=== PATIENT | male | born 1960 | race Caucasian/White ===

== ENCOUNTER → 2019-01-15 | Outpatient (CLI) | payer BC | END | disposition home or self-care (01) | LOC: CPPFTMAIN 10:29 | PROVIDERS: ATTEND Internal Medicine | DX: Z53.9 Procedure and treatment not carried out, unspecified reason (principal) ==

== ENCOUNTER → 2019-09-10 | Outpatient (CLI) | payer BC ==
--- NOTE | 2019-09-10 11:53 | CTL ---
EXAMINATION TYPE: CT Low Dose Lung DATE OF EXAM ORDERED: 09/10/2019 HISTORY: 59-year-old male Personal history tobacco use/nicotine dependence.. Lung cancer screening. CT DLP: [address] CTDI: 1.76 mGy Automated exposure control for dose reduction was used. SCREENING VISIT: Baseline COMPARISON: Correlation radiograph 02/01/2019 TECHNIQUE: Low dose computed tomography scan was performed through the chest at 1 mm thick sections a nd reconstructed images in the coronal/sagittal plane at 1 mm thick sections. Additional coronal MIP reconstruction performed. CT DIAGNOSTIC QUALITY: Satisfactory FINDINGS: Heart normal size without pericardial effusion. Minimal LAD calcifications are noted. Ectatic ascending aorta 3.8 cm. Conventional vessel branching anatomy. Minimal scattered prostatic ca lcifications within the aorta. Trace bilateral gynecomastia. No thoracic lymphadenopathy by CT size criteria. Mild centrilobular emphysema. Mild diffuse bronchial wall thickening. Biapical pleural-parenchymal sc arring. 7 mm medial right upper lobe pulmonary nodule, axial image 55. 4 mm subpleural pulmonary nodule lateral right upper lobe axial image 93. 6 mm right midlung pulmonary nodule along the major fissure likely lymph node. Axial image 202. Strandy atelectasis in the inferior lingula. No consolidation or pleural effusion. Tiny hiatal hernia. Otherwise, visualized upper abdomen shows no gross abnormality by noncontrast low -dose technique. Bones: Mild degenerative disc disease throughout the thoracic spine. IMPRESSION: 1. LungRADS Category 3 (probably benign, 1-2% chance of malignancy). 7 mm medial right upper lobe pul monary nodule. A couple additional pulmonary nodules measuring up to 6 cm. 2. COPD with mild emphysema. RECOMMENDATION: 1. Six-month follow-up low-dose CT chest to reassess the pulmonary nodules. 2. Smoking cessation. FOLLOW UP CT CHEST RECOMMENDATION: [address] LUNG RAD: Lung-Rad 3 Probably Benign
== END | disposition home or self-care (01) ==
LOC: RADCTMAIN 11:06
PROVIDERS: ATTEND Internal Medicine
DX: Z12.2 Encounter for screening for malignant neoplasm of respiratory organs (principal); J43.9 Emphysema, unspecified; R91.8 Other nonspecific abnormal finding of lung field; Z87.891 Personal history of nicotine dependence

== ENCOUNTER → 2020-07-10 | Outpatient (CLI) | payer BC ==
--- NOTE | 2020-07-10 13:32 | CTL ---
EXAMINATION TYPE: CT Low Dose Lung DATE OF EXAM ORDERED: 07/10/2020 HISTORY: . Lung cancer screening CT DLP: 117.[address] CTDI: 2.7 mGy Automated exposure control for dose reduction was used. SCREENING VISIT: COMPARISON: 09/10/2019 TECHNIQUE: Low dose computed tomography scan was performed through the chest at 1 mm thick sections a nd reconstructed images in the coronal plane at [address] DIAGNOSTIC QUALITY: Satisfactory FINDINGS: Heart normal size without pericardial effusion. Minimal LAD calcifications are noted. Ectatic ascending aorta 3.8 cm. Conventional vessel branching anatomy. Minimal scattered prostatic ca lcifications within the aorta. Trace bilateral gynecomastia. No thoracic lymphadenopathy by CT size c riteria. Mild centrilobular emphysema. Mild diffuse bronchial wall thickening. Biapical pleural-parenchymal sc arring. 7 mm medial right upper lobe pulmonary nodule, stable. 2 mm anterior segment right upper lobe nodule stable retrospectively.. 4 mm subpleural pulmonary nodule lateral right upper lobe stable. 6 mm right midlung pulmonary nodule along the major fissure stable. 2 mm subpleural nodule superior segment left lower lobe stable. Additional areas of subsegmental consolidation most typical of atelectasis. Strandy atelectasis in the inferior lingula. Coronary artery calcification noted there is atheroscler otic change of the aorta. Heart size normal. Bones: Mild degenerative disc disease throughout the thoracic spine. IMPRESSION: 1. LungRADS Category 3 (probably benign, 1-2% chance of malignancy). 7 mm medial right upper lobe pul monary nodule. A couple additional pulmonary nodules measuring up to 6 cm. 2. COPD with mild emphysema. CT LUNG RAD AND CT CHEST RECOMMENDATION: Lung-Rad 3 Probably Benign: 6 month follow-up LDCT.
== END | disposition home or self-care (01) ==
LOC: RADCTMAIN 11:36
PROVIDERS: ATTEND Internal Medicine
DX: J44.9 Chronic obstructive pulmonary disease, unspecified (principal); J43.9 Emphysema, unspecified; R91.1 Solitary pulmonary nodule
CPT/HCPCS: 71271

== ENCOUNTER → 2020-11-02 | Outpatient (CLI) | payer BC ==
--- NOTE | 2020-11-02 11:47 | XR ---
Lumbar spine HISTORY: Low back pain 3 views of lumbar spine There is a dextroscoliosis centered at L2. Lumbar vertebral bodies show preserved height and bone min eralization. There is multilevel spondylosis. Loss of disc height is greatest at L5-S1 with associate d vacuum phenomenon. Sclerosis present in the posterior elements of the lower lumbar spine. Suspect r udimentary rib at L1. Atherosclerotic vascular calcifications incidentally noted in the aortoiliac distribution. IMPRESSION: Degenerative disc disease and facet arthropathy, spinal curvature may be present
== END | disposition home or self-care (01) ==
LOC: RADXRMAIN 09:11
PROVIDERS: ATTEND Internal Medicine
DX: M51.36 Other intervertebral disc degeneration, lumbar region (principal); M12.88 Other specific arthropathies, not elsewhere classified, other specified site
CPT/HCPCS: 72100

== ENCOUNTER → 2021-09-03 | Outpatient (CLI) | payer BC ==
--- NOTE | 2021-09-03 10:59 | CT ---
EXAMINATION TYPE: CT chest wo con DATE OF EXAM: 09/03/2021 INDICATION: COPD, trouble breathing at times CT DLP: 233 mGy.cm Automated Exposure Control for Dose Reduction was Utilized. TECHNIQUE AND CONTRAST: CT scan of the chest without IV contrast administration. COMPARISON: CT dated 07/10/2020 FINDINGS: Stable 7 mm slightly irregular nodule at the medial aspect of the right lung apex, unchanged since 2019 CT scan. Other scattered smaller pulmonary nodules (arrows in axial lung window), also stable . Minimal the reticulonodular infiltration is seen at the posterolateral aspect of the left lower lob e, likely inflammatory/infectious in etiology. 9 mm right apical groundglass opacity, stable and possibly representing scarring. COPD changes. Filli ng defect is seen at the right posterolateral aspect of the trachea, superior to the declan, nonspeci fic and could represent intraluminal secretions however other lesion cannot be excluded. Further bron choscopy can be considered. No pleural or pericardial effusion. No gross cardiomegaly. Coronary and arterial atherosclerotic calc ifications. The ascending aorta measures 4 cm. No pathologically enlarged lymph nodes in the chest. G rossly unremarkable upper abdomen. No aggressive bone lesion. IMPRESSION: Stable scattered pulmonary nodules measuring up to 7 mm as described above. This is reassuring for be nign nodules. Other incidental findings as described above.
== END | disposition home or self-care (01) ==
LOC: RADCTMAIN 09:46
PROVIDERS: ATTEND Internal Medicine
DX: R91.8 Other nonspecific abnormal finding of lung field (principal)
CPT/HCPCS: 71250

== ENCOUNTER → 2021-09-19 | Outpatient (CLI) | payer BC ==
--- NOTE | 2021-09-19 12:06 | CA ---
Stress Echo Report Ernesto Snyder Age: 61 Gender: M : 1960 Exam Date: 09/19/2021 10:11 Exam Location: [facility] Ht (in): 73 Wt (lb): 170 Ordering Physician: Paddy Ivey MD Referring Physician: GAURAV, Home Appliance Washing Machine Mechanic: Brittany Dunlap RDCS Technologist Procedure CPT: Indication: R06.02 dyspnea on exertion ICD-9 Codes: Rhythm: Patient History: Atypical angina, Diabetes mellitus, Smoker, Hypertension, COPD Cardiac Medications: Medications in past 24 hours: Contrast: Stress Results Protocol: Eben Total dose(mL): Exercise Duration (min:sec): Max ST Depression (mm): Angina Score: Aguero Score: METS: 7.9 Resting HR: 80 Resting BP: 133 / 60 Peak HR: 156 Peak BP: 212 / 78 Max Predicted HR: 159 98 % Max Predicted HR Target HR: 135 Double Product: [id number] Stress Summary: BP Response: normal Reason for Termination: fatigue Cardiac Symptoms: ECG Analysis Resting ECG: Sinus mechanism with normal axis and intervals, no acute changes Stress ECG: No evidence of acute ST segment changes, Arrhythmia: 1 ventricular couplet noted Echo Analysis Resting Echo: Normal left ventricular systolic function Peak Echo Analysis: Normal wall motion augmentation with no hypokinesis or dyskinesis MEASUREMENTS (Male/Female) Normal Values CONCLUSIONS 1. Average exercise tolerance with normal electrocardiographic response to exercise 2. Normal stress echocardiogram with no evidence of stress induced ischemia. Dr. Paddy Cohen MD (Electronically Signed) Final Date: 19 September 2021 12:05
== END | disposition home or self-care (01) ==
LOC: RADNMMAIN 09:34
PROVIDERS: ATTEND Internal Medicine
DX: R06.02 Shortness of breath (principal)
CPT/HCPCS: 93351

== ENCOUNTER → 2021-09-27 | Outpatient (CLI) | payer BC ==
--- NOTE | 2021-09-27 13:46 | MR ---
EXAMINATION TYPE: MR lumbar spine wo con DATE OF EXAM: 09/27/2021 COMPARISON: Lumbar spine radiograph 05/14/2021, 11/02/2020. HISTORY: LBP, LLE radiculopathy x 5 years. TECHNIQUE: Multiplanar, multisequence images of the lumbar spine were acquired without IV contrast. Findings: Multilevel disc desiccation is present. Lumbar segments are intact. No paraspinal masses are identif ied. Conus medullaris has a normal appearance. Mild dextro scoliosis of the lumbar spine. No spondyl olisthesis. T12-L1: No herniation, protrusion or disc bulging. No canal stenosis is present. Foramina are paten t bilaterally. L1-L2: No herniation, protrusion or disc bulging. No canal stenosis is present. Foramina are patent bilaterally. L2-L3: No herniation, protrusion or disc bulging. No canal stenosis is present. Foramina are patent bilaterally. L3-L4: Broad-based disc bulge with mild effacement of the anterior thecal sac. Foramina are patent bi laterally. No significant facet arthropathy. L4-L5: Broad-based disc bulge with mild effacement of anterior thecal sac. Foramina are patent bilate rally. Mild facet arthropathy bilaterally. L5-S1: Broad-based disc bulge without significant spinal canal. There is mild foraminal stenosis bila terally. Mild facet arthropathy bilaterally. IMPRESSION: * No evidence for disc herniation. * Mild degenerative disc disease with disc bulges at L3-L4 and L4-L5 causing mild spinal canal steno sis. Mild foraminal stenosis bilaterally at L5-S1.
== END | disposition home or self-care (01) ==
LOC: RADMRIMAIN 10:32
PROVIDERS: ATTEND Orthopaedic Surgery
DX: M47.26 Other spondylosis with radiculopathy, lumbar region (principal); M51.16 Intervertebral disc disorders with radiculopathy, lumbar region; M48.061 Spinal stenosis, lumbar region without neurogenic claudication; M99.73 Connective tissue and disc stenosis of intervertebral foramina of lumbar region
CPT/HCPCS: 72148

== ENCOUNTER → 2021-12-10 | Outpatient (CLI) | payer BC ==
[2021-12-10 10:10] VITALS: BP 157/89; PULSE 87; RESP 18; TEMP 98.8
--- NOTE | 2021-12-10 15:41 | P.PAINPG ---
PQRS Measure Charge Sheet Comment: HISTORY OF PRESENT ILLNESS: 61 yr old male as a referral from Dr. Carroll presents today w severe and chronic LBP secondary to disc bulges, DDD, neuroforaminal stenoses, facet arthropathy without myelopathy for evaluation. Pt states his pain level is currently at 0/10 in intensity but escalates as high as 10 out of 10 with bending, twisting, lifting. Pain is constant, sharp in character, localized in the R lower aspects of the lumbar spine with radiation down the left lower extremity to the knee. Pain is relieved with medications (ibuprofen), physical therapy for 6 weeks in August 2021, daily home stretching regimen, repositioning and rest. PMH: OA, Asthma, HTN PSH: Denies SH: +tobacco use, +ETOH use, No illicit drug use. 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 FH: Non contributory All: NKDA Meds: See list REVIEW OF ORGAN SYSTEMS: CONSTITUTIONAL: No fevers or chills. No recent weight lo ss. NEUROLOGICAL: + numbness and tingling along the distal extremities. No seizure disorders or headaches. MUSCULOSKELETAL: + pain PSYCHIATRIC: Denies current depression or suicidal thoughts. Physical Examinations : Constitutional : Cooperative , not in acute distress . Neurologic : Cranial nerve II to XII intact. No focal neurological deficits. Psychiatric : alert & oriented x 3. Matching mood & appropriate affect. Judgment & insight intact. Musculoskeletal : Cervical Spine Motor strength in the deltoid and biceps: Normal right side. Normal Left side Motor strength biceps and the wrist e xtensors: Normal right side . Normal left side Motor strength in the triceps muscle: Normal right side. Normal left side Deep tendon reflexes: Normal at the biceps. Normal at Brachioradialis. Normal at triceps Vertebral body tenderness to deep palpation over Cervical facet loading test: positive bilaterally Spurling test: positive bilaterally Neck distraction test: positive bilaterally Elinor sign: positive bilaterally Lumbar spine Motor strength lower extremities ,thigh and legs 5/5 Right side , 5/5 Left side Deep tendon reflexes : Normal Knee Jerk. Normal Ankle Jerk Vertebral body tenderness over L5 Lumbar facet Loading Test: positive Right / positive Left Range of motion of the lumbar spine Flexion 30 degrees, extension 10 degrees Straight Leg Raise test: Left/ Right positive at degree Speedy test: positive right / positive left. Severe tenderness over the Sacroiliac joint on the Right / Left sides Gaenslen test: positive bilaterally Seated flexion test: positive bilaterally. Sacral spine : Severe tenderness over the Sacroiliac joint: right side / left side Range of motion: Flexion of the lumbar spine <60 degrees Range of motion: Extension of the lumbar spine <20 degrees Gaenslen's Test positive Kirill's Test positive Speedy test: positive right side / left side Thigh Thrust Test Sacral Thrust Test Imaging: MRI without contrast of the lumbar spine from 05/14/21 reviewed Assessment/ Plan : Lumbar disc bulge, lumbar DDD Recommendation of R TF DORIAN L5-S1. May need a series of injections, up to 3 within a six-month timeframe, for optimal pain relief. Risks, benefits of procedure discussed and patient verbalized understanding. Admits to aspirin or anti- coagulant use or medical history of diabetes. Protocol for discontinuation/ continuation of medications noble procedure discussed. All questions answered. I have spent greater than 30 minutes on patient care today. Dr Martinez was available by phone for the evaluation of this patient. The time was used to review the medical records including relevant urine studies and Prescription history (MAPs), review of the available imaging, evaluation and examination of the patient, coordination of care with the medical staff and if applicable referring physicians, as well as creation of the medical record - Pain Location Lower Back Non-Pharmacological Interventions: Physical Therapy Pharmacological Interventions: PRN Medication PQRS Narrative: Pain Intensity [Lower Back] 0 Scale Used Numeric (1 - 10) Home Medications: Ambulatory Orders Albuterol Inhaler [Ventolin Hfa Inhaler] 1 - 2 puff INHALATION Q6H PRN 12/07/21 Bisoprolol Fumarate [Zebeta] 10 mg PO HS 12/07/21 Budesonide-Formot 160-4.5 Mcg [Symbicort 160-4.5 Mcg Inhaler] 2 puff INHALATION BID 12/07/21 Ibuprofen [Motrin Ib] 800 mg PO DIRECTED PRN 12/07/21 Rosuvastatin Calcium 5 mg PO HS 12/07/21 lisinopriL [Zestril] 20 mg PO HS 12/07/21 predniSONE 2.5 mg PO DAILY 12/07/21 Controlled Substance Measures - Controlled Substance Measures Is patient prescribed a controlled substance at discharge?: No
== END | disposition home or self-care (01) ==
LOC: PNWHC3 09:40
PROVIDERS: ATTEND Specialist
DX: M51.36 Other intervertebral disc degeneration, lumbar region (principal)
CPT/HCPCS: 99211

== ENCOUNTER → 2022-06-04 | Outpatient (CLI) | payer BC ==
[2022-06-04 20:20] LABS: African American GFR (CKD) 125.8 (60.0-200.0); Blood Urea Nitrogen 5.1 mg/dL (9.0-27.0); Calcium 8.6 mg/dL (8.7-10.3); Carbon Dioxide 22.3 mmol/L (20.0-27.5); Chloride 93 mmol/L (96-109); Glucose 105 mg/dL (70-110); Non-African American GFR(CKD) 108.5 (60.0-200.0); Potassium 3.7 mmol/L (3.5-5.5); Sodium 129 mmol/L (135-145)
== END | disposition home or self-care (01) ==
LOC: LABWHC1 10:12
PROVIDERS: ATTEND Family Medicine
DX: E87.1 Hypo-osmolality and hyponatremia (principal)
CPT/HCPCS: 36415; 80048; 82024; 82533; 84300; 84443